=== PATIENT | male | born 1970 | race Caucasian/White ===

== ENCOUNTER 2024-11-02 08:06 | Emergency (ER) | payer BC, OTHER ==
[2024-11-02 08:29] VITALS: BP 131/93; PULSE 72; RESP 16; TEMP 98.6; BMI 28.4
[2024-11-02] MEDS ORDERED: KETOROLAC TROMETHAMINE 60 MG/2 ML VIAL ONE (09:21)
[2024-11-02] MEDS: KETOROLAC TROMETHAMINE 60 MG/2 ML VIAL IM ONE (09:28)
[2024-11-02] MEDS ORDERED: IBUPROFEN 400 MG TABLET (FP) PO ONE (09:31)
[2024-11-02] MEDS: IBUPROFEN 400 MG TABLET (FP) PO ONE (09:38)
[2024-11-02] MEDS ORDERED: ACETAMINOPHEN 325 MG TABLET (FP) ONE (10:29)
[2024-11-02] MEDS: ACETAMINOPHEN 325 MG TABLET (FP) PO ONE (10:33)
[2024-11-02] MEDS ORDERED: morphine SULFATE 4 MG/ML VIAL ONE (12:25)
[2024-11-02] MEDS: morphine CARPU-JECT 2 MG/1 ML DISP.SYRIN IM ONE (12:28)
== END 2024-11-02 14:06 | disposition home or self-care (01) ==
LOC: FER 08:06
PROC: 3E023NZ Introduction of Analgesics, Hypnotics, Sedatives into Muscle, Percutaneous Approach (ICD-10-PCS; principal; 2024-11-02)
DX: S82.142A Displaced bicondylar fracture of left tibia, initial encounter for closed fracture (principal); M25.462 Effusion, left knee; W01.198A Fall on same level from slipping, tripping and stumbling with subsequent striking against other object, initial encounter; Y93.67 Activity, basketball
CPT/HCPCS: 73562-TC-LT-FY; 73590-TC-LT-FY; 73700-TC-RT; 99285-25